=== PATIENT | female | born 1975 | race Caucasian/White ===

== ENCOUNTER 2019-03-03 17:01 | Emergency (ER) | payer MEDICAID ==
[~2019-03-03] VITALS: Ht 170.2 cm; Wt 55.7 kg
== END 2019-03-03 19:06 | disposition home or self-care (01) ==
LOC: ED 18:43
DX: M25.572 Pain in left ankle and joints of left foot (principal)
CPT/HCPCS: 36415; 80048; 82040; 85025; 85651; 99284

== ENCOUNTER 2020-02-19 02:29 | Emergency (ER) | payer MEDICAID, OTHER ==
[~2020-02-19] VITALS: Ht 170.2 cm; Wt 59.6 kg
--- NOTE | 2020-02-19 02:56 | NUR ---
FIRST PT CONTACT: PT CAME INTO ED TONIGHT DUE TO FLANK PAIN X3 DAYS. STATES SHE HAS A HISTORY OF KIDNEY STONES AND THIS FEELS SIMILAR. STATES URINATING IS DIFFICULT FOR HER AND ARNOLD WHEN SHE IS ABLE TO. PT MENTIONS BLADDER PAIN TO THIS RN AND DENIES EVER HAVING SURGICAL INTERVENTION FOR KIDNEY STONES IN THE PAST. PT DENIES TRAUMA TO FLANKS, NAD, VSS, SKIN P/W/D, RESP WNL, GROSS NEURO INTACT. NO BLADDER DISTENTION NOTED ON PALPATION. PT INFORMED THAT WE NEED A URINE SAMPLE AND GIVEN CUP. CALL LIGHT ON LAP, GIVEN WARM BLANKETS AND LIGHTS DIMMED FOR COMFORT. WCTM PT PLACED ON BP/SPO2 MONITORING. AMADOU EAGLE AT BS FOR EVAL AND POC.
[2020-02-19] MEDS ORDERED: ONDANSETRON 2MG/ML, 2ML IVPush ONE (03:00)
[2020-02-19] MEDS ORDERED: KETOROLAC 30 MG/1 ML IVPush ONE (03:00)
[2020-02-19] MEDS ORDERED: ONDANSETRON 2MG/ML, 2ML ONE (03:02)
[2020-02-19] MEDS ORDERED: KETOROLAC 30 MG/1 ML ONE (03:02)
--- NOTE | 2020-02-19 03:21 | NUR ---
PT MEDICATED PER MAR, URINE AND LABS WALKED TO LAB. NO CHANGE IN CONDITION. NAD. WCTM.
[2020-02-19 03:29] LABS: MICROSCOPIC AUTO
[2020-02-19 03:30] LABS: BASOPHILS # (AUTO) 0.02 x10^3/uL (0-0.1); BASOPHILS % (AUTO) 0 % (0-1); EOSINOPHILS # (AUTO) 0.02 x10^3/uL (0-0.4); EOSINOPHILS % (AUTO) 0 % (1-7); LYMPHOCYTES # (AUTO) 0.48 x10^3/uL (1-3.4); LYMPHOCYTES % (AUTO) 5 % (22-44); MD NO; MEAN CORPUSCULAR HEMOGLOBIN 32.2 pg (27.0-34.8); MEAN CORPUSCULAR HGB CONC 33.8 g/dL (32.4-35.8); MEAN CORPUSCULAR VOLUME 95.2 fL (80-100); MEAN PLATELET VOLUME 6.9 fL (7.4-10.4); MONOCYTES # (AUTO) 0.23 x10^3/uL (0.2-0.8); MONOCYTES % (AUTO) 2 % (2-9); NEUTROPHILS # (AUTO) 8.63 x10^3/uL (1.8-6.8); NEUTROPHILS % (AUTO) 92 % (42-75); PLATELET COUNT 237 x10^3/uL (130-400); RED BLOOD COUNT 4.06 x10^6/uL (3.82-5.3); RED CELL DISTRIBUTION WIDTH 13.9 % (9.6-15.2)
[2020-02-19 03:35] LABS: ALANINE AMINOTRANSFERASE 21 U/L (12-78); ALBUMIN 3.3 g/dL (3.4-5.0); ANION GAP 7 mmol/L (5-15); CALCIUM 8.4 mg/dL (8.5-10.1); CHLORIDE 102 mmol/L (98-107); CREATININE 0.89 mg/dL (0.55-1.02)
[2020-02-19 03:40] LABS: ALKALINE PHOSPHATASE 64 U/L (45-117); BILIRUBIN,TOTAL 1.4 mg/dL (0.2-1.0); TOTAL PROTEIN 7.2 g/dL (6.4-8.2)
--- NOTE | 2020-02-19 03:53 | NUR ---
PT RESTING IN GURNEY, UPDATED ON POC, STATES PAIN IS SIGNIFICANTLY DECREASED TO A 3/10 AND TOLERABLE. PT NAD, CONDITION OTHERWISE UNCHANGED. WCTM. WAITING FOR UA RESULTS.
[2020-02-19] MEDS ORDERED: CEFTRIAXONE PMX 1GM/50ML 50 ML ONE (04:17)
[2020-02-19 04:20] VITALS: BP 133/88
[2020-02-19] MEDS ORDERED: CEFTRIAXONE PMX 1GM/50ML 50 ML IV ONE (04:30)
--- NOTE | 2020-02-19 05:05 | NUR ---
Patient/Caregiver given discharge instructions and they have confirmed that they understand the instructions. Patient ambulatory with steady gait. PT DENIES ADDITIONAL QUESTIONS OR NEEDS AT THIS TIME. NAD, P/W/D. NO PT BELONGINGS LEFT IN ROOM AFTER DC.
== END 2020-02-19 05:06 | disposition home or self-care (01) ==
LOC: ED 03:18
DX: N30.01 Acute cystitis with hematuria (principal); M54.5 Low back pain; R30.0 Dysuria
CPT/HCPCS: 36415; 80053; 81001; 83690; 84703; 85025; 87077; 87086; 96365; 96375; 99284; J0696; J1885; J2405; 87186

== ENCOUNTER 2020-06-14 21:20 | Inpatient (IN) | payer MEDICAID ==
[~2020-06-14] VITALS: Ht 170.2 cm; Wt 62.6 kg
--- NOTE | 2020-06-14 21:59 | NUR ---
pt to room and in bed, and c/o pain to left flank. states has 2 kidneys on left side, 1 on right. legs drawn up in pain. iv started, lab drawn, on cr monitor, urine collected and sent to lab. to bedside to jason pt.
[2020-06-14] MEDS ORDERED: KETOROLAC 30 MG/1 ML IVPush ONE (22:00)
[2020-06-14] MEDS ORDERED: SODIUM CHLORIDE FLUSH 10ML SYR IVF ONE (22:00)
[2020-06-14] MEDS ORDERED: SODIUM CHLORIDE 0.9% 1,000ML IVBOLUS ONE (22:00)
[2020-06-14] MEDS ORDERED: ONDANSETRON 2MG/ML, 2ML IVPush ONE (22:00)
[2020-06-14] MEDS ORDERED: KETOROLAC 30 MG/1 ML ONE (22:03)
[2020-06-14] MEDS ORDERED: ONDANSETRON 2MG/ML, 2ML ONE (22:04)
[2020-06-14] MEDS ORDERED: MORPHINE SULFATE 4 MG/ML, 1ML ONE (22:04)
[2020-06-14 22:06] LABS: BASOPHILS % (AUTO) 0 % (0-1); EOSINOPHILS % (AUTO) 0 % (1-7); LYMPHOCYTES % (AUTO) 2 % (22-44); MEAN CORPUSCULAR HEMOGLOBIN 30.7 pg (27.0-34.8); MEAN CORPUSCULAR HGB CONC 33.9 g/dL (32.4-35.8); MEAN PLATELET VOLUME 7.1 fL (7.4-10.4); MONOCYTES % (AUTO) 2 % (2-9); NEUTROPHILS % (AUTO) 95 % (42-75); PLATELET COUNT 229 x10^3/uL (130-400); RED BLOOD COUNT 3.98 x10^6/uL (3.82-5.3); RED CELL DISTRIBUTION WIDTH 13.3 % (9.6-15.2)
[2020-06-14 22:08] LABS: MICROSCOPIC AUTO
[2020-06-14] MEDS: MORPHINE SULFATE 4 MG/ML, 1ML IVPush PRN ×2 (22:09→23:47)
[2020-06-14 22:14] LABS: ALANINE AMINOTRANSFERASE 29 U/L (12-78); ALBUMIN 3.3 g/dL (3.4-5.0); ANION GAP 6 mmol/L (5-15); CALCIUM 8.8 mg/dL (8.5-10.1); CHLORIDE 104 mmol/L (98-107); CREATININE 1.08 mg/dL (0.55-1.02)
[2020-06-14 22:16] LABS: ALKALINE PHOSPHATASE 66 U/L (45-117); BILIRUBIN,TOTAL 1.4 mg/dL (0.2-1.0); TOTAL PROTEIN 7.5 g/dL (6.4-8.2)
--- NOTE | 2020-06-14 22:16 | NUR ---
meds given for pain. pt on cr monitor. o2 sats 98%
[2020-06-14] MEDS ORDERED: CEFTRIAXONE PMX 1GM/50ML 50 ML IV ONE (22:30)
[2020-06-14] MEDS ORDERED: CEFTRIAXONE PMX 1GM/50ML 50 ML ONE (22:32)
--- NOTE | 2020-06-14 22:44 | NUR ---
pt to ct with tech and back without issue. pain subsided after pain meds given.
[2020-06-14 22:45] LABS: MD SCAN
[2020-06-15] MEDS ORDERED: ACETAMINOPHEN 325 MG TABLET PO PRN
[2020-06-15] MEDS ORDERED: ONDANSETRON ODT 4 MG PO PRN
[2020-06-15] MEDS ORDERED: MELATONIN 5 MG TABLET PO PRN
[2020-06-15] MEDS ORDERED: DOCUSATE 100 MG CAPSULE PO PRN
[2020-06-15] MEDS ORDERED: LIDODERM 5% PATCH TD PRN
[2020-06-15] MEDS ORDERED: morphine SULFATE 10 MG/ML, 1ML IVPush PRN
[2020-06-15] MEDS: LACTATED RINGERS 1,000 ML IV SCH ×4 (00:52→17:53)
--- NOTE | 2020-06-15 01:12 | NUR ---
PT PROVIDED WITH FOOD PER COFFEE CART. UP TO RESTROOM WITH NO ASSISTANCE NECESSARY, GAIT STRONG AND INDEPENDENT. DENIES ANY FURTHER NEEDS OR CONCERNS AT THIS TIME, CALL LIGHT IN REACH.
--- NOTE | 2020-06-15 02:04 | NUR ---
PT LYING IN BED, AWAKE. DENIES ANY CURRENT NEEDS OR CONCERNS. VITALS UPDATED. CALL LIGHT IN REACH.
--- NOTE | 2020-06-15 03:05 | NUR ---
PT IN BED, RESTING, NAD NOTED, RESPIRS EQUAL AND UNLABORED. VITALS STABLE ON MONITOR. CALL LIGHT IN REACH.
--- NOTE | 2020-06-15 04:29 | NUR ---
pt resting comfortably, no distress at this time. call light in reach, remains on cr monitor for vital signs.
[2020-06-15 04:46] LABS: BASOPHILS % (AUTO) 0 % (0-1); EOSINOPHILS % (AUTO) 0 % (1-7); LYMPHOCYTES % (AUTO) 7 % (22-44); MEAN CORPUSCULAR HEMOGLOBIN 31.9 pg (27.0-34.8); MEAN CORPUSCULAR HGB CONC 34.4 g/dL (32.4-35.8); MEAN PLATELET VOLUME 7.1 fL (7.4-10.4); MONOCYTES % (AUTO) 3 % (2-9); NEUTROPHILS % (AUTO) 90 % (42-75); PLATELET COUNT 197 x10^3/uL (130-400); RED BLOOD COUNT 3.62 x10^6/uL (3.82-5.3); RED CELL DISTRIBUTION WIDTH 13.4 % (9.6-15.2)
[2020-06-15 04:50] LABS: ANION GAP 3 mmol/L (5-15); CALCIUM 8.2 mg/dL (8.5-10.1); CHLORIDE 109 mmol/L (98-107)
[2020-06-15 04:52] LABS: CREATININE 0.96 mg/dL (0.55-1.02)
--- NOTE | 2020-06-15 05:04 | NUR ---
pt complaining of pain to left flank, 7 out of 10. po meds given.
[2020-06-15] MEDS ORDERED: OXYcodone/APAP 7.5/325MG TABLET ONE (05:06)
[2020-06-15 05:30] LABS: MD SCAN
--- NOTE | 2020-06-15 06:03 | NUR ---
pt comfortable and resting, without pain or distress at this time. on cr monitor.
--- NOTE | 2020-06-15 06:52 | NUR ---
Report and care given to oncoming RN
--- NOTE | 2020-06-15 07:15 | NUR ---
RECVD REPORT FROM RONY RN
--- NOTE | 2020-06-15 07:44 | NUR ---
PATIENT RESTING COMFORTABLY SLEEPING. O2 SATURATION 88%, PUT ON 2L O2. CYCLING VITALS, PATIENT RATED PAIN 4/10. BREAKFAST ORDERED, CALL LIGHT WITHIN REACH. NO ADDITIONAL NEEDS VERBALIZED AT THIS TIME.
--- NOTE | 2020-06-15 08:10 | NUR ---
DELIVERED BREAKFAST TRAY. NO ADDITIONAL NEEDS VERBALIZED AT THIS TIME. CALL LIGHT WITHIN REACH.
--- NOTE | 2020-06-15 09:27 | NUR ---
PATIENT WANTED TO SEE HOW SHE DID WITHOUT O2. SATURATIONS DROPPED TO 88%. APPLIED 2L O2 BY NASAL CANULA. PT O2 SAT CURRENTLY 94%
--- NOTE | 2020-06-15 13:03 | NUR ---
PATIENT RESTING COMFORTABLY, PROVIDED LUNCH TRAY, CALLED FOR INPATIENT BED
--- NOTE | 2020-06-15 13:16 | NUR ---
HOSPITAL BED PLACED FOR COMFORT, PT TO BATHROOM VERBALIZED NO OTHER NEEDS AT THIS TIME
--- NOTE | 2020-06-15 16:46 | NUR ---
DINNER TRAY ORDERED
[2020-06-15] MEDS ORDERED: ACETAMINOPHEN 325 MG TABLET ONE (17:10)
--- NOTE | 2020-06-15 17:10 | NUR ---
DELIVERED DINNER TRAY, PATIENT RESTING IN NO ACUTE DISTRESS. COMPLAINS OF HEADACHE. WILL MEDICATE PER SEP.
--- NOTE | 2020-06-15 18:34 | NUR ---
REPORT TO HUMERA GRUBBS, PLAN OF CARE DISCUSSED.
[2020-06-15 19:30] VITALS: BP 129/84
[2020-06-15] MEDS ORDERED: CEFTRIAXONE PMX 1GM/50ML 50 ML IV SCH (23:00)
[2020-06-16 01:46] VITALS: BP 123/80
[2020-06-16] MEDS: LACTATED RINGERS 1,000 ML IV SCH ×2 (04:06→12:06)
[2020-06-16 07:30] VITALS: BP 152/94
[2020-06-16] MEDS ORDERED: CIPR500T87 PO (12:37)
== END 2020-06-16 16:10 | disposition home or self-care (01) | DRG 872 ==
LOC: ED 22:43 → EDIP 23:43 → 3N 06-15 19:39 → DCLOUNGE 06-16 16:02
PROVIDERS: ADMIT Family Medicine; ATTEND Family Medicine
DX: A41.9 Sepsis, unspecified organism (principal); N10 Acute pyelonephritis; N17.9 Acute kidney failure, unspecified; F10.20 Alcohol dependence, uncomplicated; G40.A09 Absence epileptic syndrome, not intractable, without status epilepticus; Z88.8 Allergy status to other drugs, medicaments and biological substances; N20.0 Calculus of kidney; N83.202 Unspecified ovarian cyst, left side; Q63.0 Accessory kidney; Z80.3 Family history of malignant neoplasm of breast; Z87.440 Personal history of urinary (tract) infections
CPT/HCPCS: 36415; 74176; 80048; 80053; 80320; 81001; 83605; 84145; 85025; 87086; G0378; J0696; J1885; J2405; G0480; J2270; J7030; J7120

== ENCOUNTER 2020-11-27 05:51 | Emergency (ER) | payer MEDICAID ==
[~2020-11-27] VITALS: Ht 170.2 cm; Wt 58.6 kg
[~2020-11-27 05:51] MED LIST: CIPR500T87 PO
[2020-11-27 05:54] VITALS: BP 161/101
--- NOTE | 2020-11-27 05:54 | NUR ---
INITIAL PT CONTCT. PT PRESENTS TOED C/O LEFT LOWER ABDOMINAL PAIN AND LEFT KIDNEY PAIN. "MY LEFT KIDNEY HURTS, I HAVE A LOT OF URINARY ISSUES, I THINK I HAVE ANOTHER STONE.". PT ALSO C/O INCREASED PAIN, REDNESSS AND SWELLING TO THE LEFT LOWER EXTREMITY, NO RECENT TRAUMA. PT SITTING UPRIGHT ON GURNEY, VSS. PT TEARFUL AND ANXIOUS UPON EXAM. PT PLACED ON CONTINUOUS MONITORING. PT AMBULATORY TO BATHROOM WITH STEADY GAIT, URINE SAMPLE COLLECTED. PT DENIES ANY NEEDS AT THIS TIME.
[2020-11-27] MEDS ORDERED: HYDROmorphone 1 MG/ML, 1ML INJ ONE (06:17)
[2020-11-27] MEDS ORDERED: ONDANSETRON 2MG/ML, 2ML ONE (06:18)
[2020-11-27 06:26] LABS: MEAN CORPUSCULAR HEMOGLOBIN 32.2 pg (27.0-34.8); MEAN CORPUSCULAR HGB CONC 34.4 g/dL (32.4-35.8); MEAN PLATELET VOLUME 6.8 fL (7.4-10.4); PLATELET COUNT 292 x10^3/uL (130-400); RED BLOOD COUNT 4.14 x10^6/uL (3.82-5.3); RED CELL DISTRIBUTION WIDTH 14.2 % (9.6-15.2)
[2020-11-27 06:27] LABS: BASOPHILS % (AUTO) 1 % (0-1); EOSINOPHILS % (AUTO) 1 % (1-7); LYMPHOCYTES % (AUTO) 17 % (22-44); MONOCYTES % (AUTO) 10 % (2-9); NEUTROPHILS % (AUTO) 72 % (42-75)
[2020-11-27] MEDS ORDERED: HYDROmorphone 1 MG/ML, 1ML INJ IV ONE (06:30)
[2020-11-27] MEDS ORDERED: SODIUM CHLORIDE 0.9% 1,000ML IVBOLUS ONE (06:30)
[2020-11-27] MEDS ORDERED: ONDANSETRON 2MG/ML, 2ML IVPush ONE (06:30)
[2020-11-27 06:31] LABS: MICROSCOPIC INDICATED
[2020-11-27 06:39] LABS: ALANINE AMINOTRANSFERASE 32 U/L (12-78); ALBUMIN 3.3 g/dL (3.4-5.0); ANION GAP 9 mmol/L (5-15); CALCIUM 8.7 mg/dL (8.5-10.1); CHLORIDE 109 mmol/L (98-107); CREATININE 0.75 mg/dL (0.55-1.02)
[2020-11-27 06:41] LABS: ALKALINE PHOSPHATASE 69 U/L (45-117); TOTAL PROTEIN 7.2 g/dL (6.4-8.2)
--- NOTE | 2020-11-27 06:45 | NUR ---
PT ROOM AIR O2 SAT FOLLOWING LINK WIRE FABRIC MACHINE TENDER NOTED TO BE 80% WHILE SLEEPING, PT PLACED ON 2L O2 VIA NASAL CANNULA, O2 SAT NOW 99%. PT REPORTS PAIN RELIEF FOLLOWING LINK WIRE FABRIC MACHINE TENDER. NO ADDITIONAL NEEDS AT THIS TIME. CALL LIGHT AND BELONGINGS WITHIN REACH.
--- NOTE | 2020-11-27 06:49 | NUR ---
BEDSIDE REPORT TO JAREN RAUSCH
--- NOTE | 2020-11-27 06:51 | NUR ---
rec'd report from noc shift. pt resting in bed. vss. IV fluids infusing. will continue to monitor.
[2020-11-27 06:56] LABS: MD SCAN
[2020-11-27] MEDS ORDERED: CEFTRIAXONE 1,000 MG in DEXTROSE 5% 50 ML IVPB ONE (07:00)
== END 2020-11-27 07:59 | disposition home or self-care (01) ==
LOC: ED 06:13
DX: N10 Acute pyelonephritis (principal); M79.605 Pain in left leg; G40.909 Epilepsy, unspecified, not intractable, without status epilepticus; Z88.1 Allergy status to other antibiotic agents
CPT/HCPCS: 36415; 74176; 80053; 80320; 81001; 83690; 85025; 87077; 87086; 87186; 96365; 96375; 99284; J0696; J1170; J2405; J7030; G0480

== ENCOUNTER 2020-12-07 18:22 | Emergency (ER) | payer MEDICAID ==
[~2020-12-07] VITALS: Ht 170.2 cm; Wt 58.1 kg
[2020-12-07 18:28] VITALS: BP 129/100
--- NOTE | 2020-12-07 20:42 | NUR ---
SUPERINTENDENT MEASUREMENT: NIL X 1 WHEN CALLED FOR ROOM.
--- NOTE | 2020-12-07 21:09 | NUR ---
HOUSEHOLD ASSISTANT: NIL X 2 WHEN CALLED FOR ROOM.
--- NOTE | 2020-12-07 21:25 | NUR ---
MAIL CARRIER AND CLERK: NIL X 2 WHEN CALLED FOR ROOM. Addendum: 12/07/20 at 2125 by JENSEN X 3 WHEN CALLED FOR TRIAGE.
== END 2020-12-07 21:28 | disposition left against medical advice (07) ==
LOC: ED 19:45
DX: R10.9 Unspecified abdominal pain (principal); M54.9 Dorsalgia, unspecified; Z53.21 Procedure and treatment not carried out due to patient leaving prior to being seen by health care provider